=== PATIENT | female | born 1955 | race African-American/Black ===

== ENCOUNTER 2023-04-05 09:34 | Emergency (ER) | payer OTHER ==
--- OUTSIDE RECORDS SUMMARY | 2023-04-05 09:38 | XMS REPORT | Continuity of Care Document ---
:1955 Author Organization [facility] t Address [address] [place] [address]. [address] [place] [address] Care Team Providers Name Role Phone Asked, No Pcp Primary Care Physician Unavailable Neli Karimi Attending Clinician Unavailable Bear NUNEZ, Hellen Attending Clinician David Delacruz MD Attending Clinician Allyssa Naidu MD Attending Clinician Payers Payer Name Policy Type Policy Number Effective Date Expiration Date S ource Problems Condition Condition Condition Status Onset Resolution Last Treating Co mments Source Name Details Category Date Date Treatment Clinician Date Primary Primary Disease Active [facility] hypert[facility] hypertensi 03-05 [facility]: [facility]osp[facility] 00 l Allergies, Adverse Reactions, Alerts This patient has no known allergies or adverse reactions. Social History Social Habit Start Date Stop Date Quantity Comments Source [facility] Tobacco use and 2023-03-05 2023-03-05 Smokeless [facility] 00:00:00 00:00:00 tobacco non-user Hospital History of Social 2023-03-05 2023-03-[address] function 00:00:00 00:00:00 Hospital Sex Assigned At [birth year] [facility] Smoking Status Start Date Stop Date Source Never smoked tobacco [facility] Medications Ordered Filled Start Stop Current Ordering Indication Dosage Frequency Signature Comments Components Source Medication Medication Date Date Medication? Clinician (SIG) Name Name acetaminoph Yes 500mg Q6H Take 1 Met hodi en 4-[address] (TYLENOL) 14:16: (500 mg Hospi ta 500 MG 19 total) by l tablet mouth every 6 (six) hours as needed for mild pain. Lactobac Yes Take by Method i no.41/Bifid 4-[address] obact no.7 14:16: Hospita (PROBIOTIC- 19 l 10 ORAL) potassium 0 Yes 10meq QD Take 1 Metho di chloride 3-[address] (MICRO-K) 00:00: (10 mEq Hospi ta 10 MEQ CR 00 total) by l capsule mouth daily. metoprolol 0 Yes 100mg Q.5D Take 1 Meth siva succinate 3-[address] XL 00:00: (100 mg Hospita (TOPROL-XL) 00 total) by l 100 mg 24 mouth 2 hr tablet (two) times a day. atorvastati 0 Yes 20mg QD Take 1 Meth siva n (LIPITOR) 3-31 tablet (20 st 20 mg 00:00: mg total) Hospita tablet 00 by mouth l daily. losartan 0 Yes 100mg QD Take 1 Method i (COZAAR) 3-[address] 100 MG 00:00: (100 mg Hospita tablet 00 total) by l mouth daily. torsemide 0 Yes 20mg QD Take 1 Method i (DEMADEX) 3-31 tablet (20 st 20 MG 00:00: mg total) Hospita tablet 00 by mouth l daily. clonIDINE 0 Yes .1mg Q.5D Take 1 Method i (CATAPRES) 3-[address] 0.1 MG 00:00: (0.1 mg [facility]ospita tablet 00 total) by l mouth 2 (two) times a day. Vital Signs Vital Name Observation Time Observation Value Comments Source Systolic blood 2023-03-05 19:12:00 220 mm[Hg] [facility] pressure Diastolic blood 2023-03-05 19:12:00 90 mm[Hg] [facility] pressure Heart rate 2023-03-05 19:12:00 67 /min [facility] Body temperature 2023-03-05 19:12:00 36.06 Bonnie [facility] Respiratory rate 2023-03-05 19:12:00 20 /min [facility] Body height 2023-03-05 19:12:00 167.6 cm [facility] Body weight 2023-03-05 19:12:00 90.436 kg [facility] BMI 2023-03-05 19:12:00 32.18 kg/m2 [facility] Procedures Procedure Date / Time Performed Performing Clinician Sour e MAMMO EXTERNAL STUDY 2023-01-22 15:37:00 SifuentesHellen [facility] US BREAST EXTERNAL 2023-01-22 15:37:[address] [facility] STUDY Plan of Care Planned Activity Planned Date Details Comments Source Future Scheduled 2023-04-04 Hepatitis C screening [facility] Test 10:16:55 (procedure) [code = 901661436] Future Scheduled 2023-04-04 Screening for [facility] Test 10:16:55 malignant neoplasm of cervix (procedure) [code = 747293426] Future Scheduled 2023-04-04 COLONOSCOPY SCREENING [facility] Test 10:16:55 [code = COLONOSCOPY SCREENING] Future Scheduled 2023-04-04 SHINGLES VACCINES (1 Met [facility] Test 10:16:55 of 2) [code = SHINGLES VACCINES (1 of 2)] Future Scheduled 2023-04-04 COVID-19 VACCINE (3 - [facility] Test 10:16:55 Booster for Pfizer series) [code = COVID-19 VACCINE (3 - Booster for Pfizer series)] Future Scheduled 2023-04-04 65+ PNEUMOCOCCAL [facility] Test 10:16:55 VACCINE (1 - PCV) [code = 65+ PNEUMOCOCCAL VACCINE (1 - PCV)] Future Scheduled 2023-04-04 INFLUENZA VACCINE Method [facility] Test 10:16:55 [code = INFLUENZA VACCINE] Future Scheduled 2023-04-04 BREAST CANCER [facility] Test 10:16:55 SCREENING [code = BREAST CANCER SCREENING] Encounters Start End Encounter Admission Attending Care Care Encounter Source Date/Time Date/Time Type Type Clinicians Facility Department ID 2023-03-27 2023-03-27 Candelario Karimi [id number] Methodi 00:00:00 00:00:[id number] 3.430.2.7 Hospit a .3.963531 l .8 2023-03-20 2023-03-20 Telephone Sachi, 1.2.840.1 [id number] Methodi 00:00:00 00:00:[address] 3.430.2.7 Hospit a .3.178068 l .8 2023-03-18 2023-03-18 [facility], 1.2.840.1 [id number] Methodi 09:20:48 23:59:00 Encounter Dharamvir [id number] 3.430.2.7 Hospit a .3.140530 l .8 2023-03-18 2023-03-18 [facility], 1.2.840.1 [id number] Methodi 09:20:31 23:59:00 Encounter Dharamvir [address]1693.1.[address] 3.430.2.7 Hospit a .3.520839 l .8 2023-03-18 2023-03-18 Telephone Sifuentes, 1.2.840.1 [id number] Methodi 00:00:00 00:00:[address] 3.430.2.7 Hospit a .3.801069 l .8 2023-03-18 2023-03-18 [facility] [id number] [place] 00:00:00 00:00:[address] 2023-03-18 2023-03-18 [facility] [id number] [place] 00:00:00 00:00:[address] 2023-03-12 2023-03-12 [facility], 1.2.840.1 [id number] [facility] 00:00:00 00:00:00 Orders David Flanagan 43482.1.1 ity of 3.412.2.7 [place] .3.407122 MD Pinedo8 [facility] 2023-03-10 2023-03-10 Telephone Sifuentes, 1.2.840.1 [id number] Methodi 00:00:00 00:00:[address] 3.430.2.7 Hospit a .3.531025 l .8 2023-03-06 2023-03-06 Telephone Sifuentes, 1.2.840.1 [id number] Methodi 00:00:00 00:00:[address] 3.430.2.7 Hospit a .3.697001 l .8 2023-03-05 2023-03-05 Office Bear, 1.2.840.1 [id number] Methodi 14:00:00 15:29:44 Visit Dharamvir [address]49.1.[address] 3.430.2.7 Hospit a .3.846366 l .8 2023-03-05 2023-03-05 Travel 1.2.840.1 1.2.259.373 [id number] Methodi 00:00:00 00:00:[address] 3.430.2.7 0.2.7.3.698 spita .3.188418 084.8 l .8 2023-03-05 2023-03-05 [facility] [id number] [place] 00:00:00 00:00:[address] 2023-02-14 2023-02-14 Telephone Elysia, 1.2.840.1 [id number] Methodi 00:00:00 00:00:00 [address] 3.430.2.7 Hospit a .3.989635 l .8 Results This patient has no known results.
--- OUTSIDE RECORDS SUMMARY | 2023-04-05 09:38 | XMS REPORT | Clinical Summary ---
:1955 Author Organization [facility] Address [address] [place] [id number] Care Team Providers Name Role Phone David Delacruz MD Unavailable Allergies Not on File Medications Not on file Active Problems Not on file Encounters Date Type Specialty Care Team Description 03/12/2023 Community Orders David Delacruz MD Ot her inconclusive finding on diagnostic i maging of breast (Primary Dx) after 04/05/2022 Social History Tobacco Use Types Packs/Day Years Used Date Smoking Tobacco: Never Assessed Sex Assigned at Date Recorded Not on file Job Start Date Occupation Industry Not on file Not on file Not on file Last Filed Vital Signs Not on file Plan of Treatment Not on file Results Not on fileafter 04/05/2022 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
[2023-04-05] MEDS ORDERED: NA CHLORIDE 0.9% 1,000 ML ONE (10:01)
[2023-04-05 10:32] LABS: Absolute Lymphocytes (CBC) 1.4 K/uL (0.7-4.9); Hematocrit 37.6 % (36.0-45.0); Lymphocytes % 25.6 % (15.3-44.8); MPV 10.1 fL (7.6-11.3); RBC Red Blood Cell Count 4.76 M/uL (3.86-4.86)
[2023-04-05 10:49] LABS: Bilirubin Total 0.6 mg/dL (0.2-1.0); Potassium 3.2 mEq/L (3.5-5.1)
[2023-04-05 11:55] LABS: Specific Gravity 1.013 (1.005-1.030); Urine Bilirubin NEGATIVE (Negative); Urine Blood Negative (Negative); Urine Clarity Clear (Clear); Urine Color Light-Yellow (Yellow); Urine Glucose NEGATIVE (Negative); Urine Protein NEGATIVE (Negative); Urine Urobilinogen Normal (Normal)
--- NOTE | 2023-04-05 12:38 | RAD REPORT ---
EXAM DESCRIPTION: US - Abdomen Exam Limited - 04/05/2023 12:28 pm CLINICAL HISTORY: ABD PAIN COMPARISON: Abdomen W Contrast dated 06/12/2021 FINDINGS: The gallbladder demonstrates no gallstones. No pericholecystic fluid or gallbladder wall t hickening. The common bile duct is normal measuring 2 mm. The liver demonstrates no findings of intrahepatic biliary dilatation. IMPRESSION: Unremarkable examination.
--- NOTE | 2023-04-05 13:07 | EDPHYS ---
Physician Documentation [facility] Name: Siri Colvin Age: 67 yrs Sex: Female : 1955 Arrival Date: 04/05/2023 Time: 09:34 Bed 8 Private MD: ED Physician Blair Cade HPI: 04/05 09:55 This 67 yrs old Black Female presents to ER via Ambulatory with complaints of Abd Pain cp > 50 y/o. 09:55 The patient presents with abdominal pain in the lower abdomen. Onset: The cp symptoms/episode began/occurred 1 week(s) ago. 09:55 The symptoms do not radiate. cp 09:55 Associated signs and symptoms: Pertinent negatives: blood in stools, diarrhea, dysuria, cp fever, headache, vomiting. The symptoms are described as waxing/waning. Severity of pain: in the emergency department the pain is unchanged despite home interventions. Patient reports history of "breast cysts" and being told by DR Delacruz to f/u at [facility] and/or [facility]. Historical: - Allergies: 09:44 No Known Allergies; aa5 - PMHx: 09:44 Hypertension; Pre-diabetes; aa5 - PSHx: 09:44 ovarian cyst removed; hysterectomy; aa5 - Immunization history:: Adult Immunizations unknown. - Social history:: Smoking status: Patient denies any tobacco usage or history of. ROS: 10:00 Constitutional: Negative for body aches, chills, fever, poor PO intake. cp 10:00 Eyes: Negative for injury, pain, redness, and discharge. cp 10:00 ENT: Negative for drainage from ear(s), ear pain, sore throat, difficulty swallowing, cp difficulty handling secretions. 10:00 Cardiovascular: Negative for chest pain, edema, palpitations. 10:00 Respiratory: Negative for cough, shortness of breath, wheezing. 10:00 Abdomen/GI: Positive for abdominal pain, Negative for vomiting, diarrhea, constipation, black/tarry stool, rectal bleeding. 10:00 Back: Negative for radiated pain. 10:00 Neuro: Negative for altered mental status, dizziness, headache, weakness. 10:00 All other systems are negative. Exam: 10:05 Constitutional: The patient appears in no acute distress, alert, awake, cp non-diaphoretic, non-toxic, well developed, well nourished. 10:05 Head/Face: Normocephalic, atraumatic. cp 10:05 Eyes: Periorbital structures: appear normal, Conjunctiva: normal, no exudate, no injection, Sclera: no appreciated abnormality, Lids and lashes: appear normal, bilaterally. 10:05 ENT: External ear(s): are unremarkable, Nose: is normal, Mouth: Lips: moist, Oral mucosa: pink and intact, moist, Posterior pharynx: is normal, airway is patent, no erythema, no exudate. 10:05 Neck: ROM/movement: is normal, is supple, without pain, no range of motions limitations. 10:05 Chest/axilla: Inspection: normal. 10:05 Cardiovascular: Rate: normal, Rhythm: regular, Edema: is not appreciated, JVD: is not appreciated. 10:05 Respiratory: the patient does not display signs of respiratory distress, Respirations: normal, no use of accessory muscles, no retractions, labored breathing, is not present, Breath sounds: are clear throughout, no decreased breath sounds, no stridor, no wheezing. 10:05 Abdomen/GI: Inspection: abdomen appears normal, Bowel sounds: active, all quadrants, Palpation: soft, in all quadrants, mild abdominal tenderness, in the right lower quadrant and left lower quadrant, rebound tenderness, is not appreciated. 10:05 Back: CVA tenderness, is absent. 10:05 Neuro: Orientation: to person, place \\T\\ time. Mentation: is normal, Motor: moves all fours, strength is normal. Vital Signs: 09:43 BP 209 / 106; Pulse 60; Resp 16 S; Temp 97.9(TE); Pulse Ox 100% on R/A; Weight 86.18 kg aa5 (R); Height 5 ft. 6 in. (R); 10:09 BP 172 / 87; Pulse 58; Resp 18; Pulse Ox 98% on R/A; ld1 12:44 BP 182 / 81; Pulse 60; Resp 18; Pulse Ox 99% on R/A; ld1 09:43 Body Mass Index 30.67 (86.18 kg, 167.64 cm) aa5 MDM: 09:43 Patient medically screened. cp 11:00 Differential diagnosis: appendicitis, cholecystitis, Cholelithiasis, diverticulitis, cp non-specific abd pain, pancreatitis, Peritonitis, Pyelonephritis, Ureterolithiasis, urinary tract infection. 11:36 ED course: Patient declines to have CT abdomen/pelvis at this time to evaluate cp abdominal pain. 13:05 Data reviewed: vital signs, nurses notes, lab test result(s), radiologic studies, cp ultrasound. 13:05 I considered the following discharge prescriptions or medication management in the emergency department Medications were administered in the Emergency Department. See MAR. Test considered but Not performed: CT: abdomen/pelvis. Care significantly affected by the following chronic conditions: Diabetes, Hypertension. Counseling: I had a detailed discussion with the patient and/or guardian regarding: the historical points, exam findings, and any diagnostic results supporting the discharge/admit diagnosis, the presence of at least one elevated blood pressure reading (>120/80) during this emergency department visit, lab results, radiology results, the need for outpatient follow up, a general surgeon, to return to the emergency department if symptoms worsen or persist or if there are any questions or concerns that arise at home. 04/05 09:49 Order name: CBC with Diff; Complete Time: 11:24 04/05 11:24 Interpretation: Normal except: MCV 79.0; MCH 25.1; MCHC 31.8; RDW 16.5; MN% 13.0. 04/05 09:49 Order name: CMP; Complete Time: 11:24 04/05 11:24 Interpretation: Normal except: K 3.2; GFR 71; GLOB 4.0; A/G 1.0. 04/05 09:49 Order name: Lipase; Complete Time: 11:24 04/05 09:49 Order name: Urinalysis w/ reflexes; Complete Time: 12:21 04/05 12:21 Interpretation: Reviewed. 04/05 11:37 Order name: US Abdomen Limited: gallbladder; Complete Time: 12:59 04/05 12:59 Interpretation: Report reviewed. 04/05 09:49 Order name: IV Saline Lock; Complete Time: 11:58 04/05 09:49 Order name: Labs collected and sent; Complete Time: 10:25 cp Administered Medications: 10:18 Not Given (Physician Discretion): NS 0.9% IV 1000 ml IV at 1 bolus Per protocol; 1000 cp mL bolus 11:58 Not Given (Patient Refused): morphine IVP or IV 4 mg IVP once over 4 mins ld1 11:58 Not Given (Patient Refused): Ondansetron IVP 4 mg IVP once; over 2 minutes ld1 11:58 Not Given (Patient Refused): NS 0.9% IV 500 ml IV at bolus continuous ld1 11:58 Not Given (Patient Refused): NS 0.9% IV 500 ml IV at 100 ml/hr continuous ld1 Disposition Summary: 04/05/23 13:07 Discharge Ordered Location: Home cp Problem: new cp Symptoms: have improved cp Condition: Stable cp Diagnosis - Lower abdominal pain, unspecified cp - Hypertensive heart disease without heart failure cp - History of Breast Cyst cp Followup: cp - With: David Delacruz MD - When: 2 - 3 days - Reason: Recheck today's complaints Followup: cp - With: Florentin Jones MD - When: 2 - 3 days - Reason: breast cyst Discharge Instructions: - Discharge Summary Sheet cp - Abdominal Pain, Adult cp - Hypertension, Adult cp - Aspirin and Your Heart cp - Form - Blood Pressure Record Sheet cp - How to Take Your Blood Pressure cp Forms: - Medication Reconciliation Form cp - Thank You Letter cp - Antibiotic Education cp - Prescription Opioid Use cp Signatures: Dispatcher [employer] Aldana RN RN aa5 Shaquille Rascon PA PA cp Olive Emerson RN ld1 Corrections: (The following items were deleted from the chart) 11:49 10:19 Abdomen Pelvis W Con+CT.RAD.BRZ ordered. EDMS EDMS
--- NOTE | 2023-04-05 13:07 | ER ---
Nurse's Notes [facility] Name: Siri Colvin Age: 67 yrs Sex: Female : 1955 Arrival Date: 04/05/2023 Time: 09:34 Bed 8 Private MD: Diagnosis: Lower abdominal pain, unspecified;Hypertensive heart disease without heart failure;History of Breast Cyst Presentation: 04/05 09:43 Chief complaint: Patient states: lower abd pain for approximately 1 week and gradually aa5 getting worse. Pt denies nausea/vomiting/diarrhea. Onset of symptoms was March 2023. 09:43 Acuity: PHILIP 3 aa5 09:43 Method Of Arrival: Ambulatory aa5 09:43 Coronavirus screen: At this time, the client does not indicate any symptoms associated aa5 with coronavirus-19. Ebola Screen: Patient denies travel to an Ebola-affected area in the 21 days before illness onset. Initial Sepsis Screen: Does the patient meet any 2 criteria? No. Patient's initial sepsis screen is negative. Does the patient have a suspected source of infection? No. Patient's initial sepsis screen is negative. Risk Assessment: Do you want to hurt yourself or someone else? Patient reports no desire to harm self or others. Historical: - Allergies: 09:44 No Known Allergies; aa5 - PMHx: 09:44 Hypertension; Pre-diabetes; aa5 - PSHx: 09:44 ovarian cyst removed; hysterectomy; aa5 - Immunization history:: Adult Immunizations unknown. - Social history:: Smoking status: Patient denies any tobacco usage or history of. Screenin:10 [facility] ED Fall Risk Assessment (Adult) History of falling in the last 3 months, ld1 including since admission No falls in past 3 months (0 pts). Abuse screen: Denies threats or abuse. Denies injuries from another. Nutritional screening: No deficits noted. Tuberculosis screening: No symptoms or risk factors identified. Assessment: 10:10 General: Appears in no apparent distress. comfortable, Behavior is calm, cooperative, ld1 appropriate for age. Pain: Complains of pain in right lower quadrant and left lower quadrant Pain does not radiate. Pain currently is 8 out of 10 on a pain scale. Quality of pain is described as throbbing. Neuro: Level of Consciousness is awake, alert, obeys commands, Oriented to person, place, time, situation. Cardiovascular: Capillary refill < 3 seconds Patient's skin is warm and dry. Respiratory: Airway is patent Respiratory effort is even, unlabored. GI: Abdomen is round non-distended, Bowel sounds present X 4 quads. Abd is soft Abdomen is tender to palpation in right lower quadrant and left lower quadrant Reports lower abdominal pain. : No signs and/or symptoms were reported regarding the genitourinary system. EENT: No signs and/or symptoms were reported regarding the EENT system. Derm: No signs and/or symptoms reported regarding the dermatologic system. Musculoskeletal: No signs and/or symptoms reported regarding the musculoskeletal system. 12:44 Reassessment: Patient appears in no apparent distress at this time. No changes from ld1 previously documented assessment. Patient and/or family updated on plan of care and expected duration. Pain level reassessed. Vital Signs: 09:43 BP 209 / 106; Pulse 60; Resp 16 S; Temp 97.9(TE); Pulse Ox 100% on R/A; Weight 86.18 kg aa5 (R); Height 5 ft. 6 in. (R); 10:09 BP 172 / 87; Pulse 58; Resp 18; Pulse Ox 98% on R/A; ld1 12:44 BP 182 / 81; Pulse 60; Resp 18; Pulse Ox 99% on R/A; ld1 09:43 Body Mass Index 30.67 (86.18 kg, 167.64 cm) aa5 ED Course: 09:43 Patient arrived in ED. aa5 09:43 Shaquille Rascon PA is PHCP. cp 09:43 Blair Cade MD is Attending Physician. cp 09:43 Arm band placed on Patient placed in an exam room, on a stretcher. aa5 09:44 Triage completed. aa5 09:53 Olive Emerson, BISI is Primary Nurse. ld1 10:10 Patient has correct armband on for positive identification. Placed in gown. Bed in low ld1 position. Call light in reach. Side rails up X2. hall monitor on. Pulse ox on. NIBP on. Door closed. Noise minimized. Warm blanket given. 10:10 No provider procedures requiring assistance completed. ld1 10:32 Missed attempt(s): 22 gauge in left antecubital area. blood collected, Catheter would kr3 not advance . 11:00 Radiology exam delayed due to IV insertion attempt and/or patient not having jg10 appropriate IV at this time. 11:24 Inserted saline lock: 22 gauge in right upper arm, using aseptic technique. aa5 11:46 Note: CT cancelled per Shaquille Rascon due to pt refusal.. jg10 12:30 US Abdomen Limited: gallbladder In Process Unspecified. EDMS 13:05 David Delacruz MD is Referral Physician. cp 13:06 Florentin Jones MD is Referral Physician. cp 13:15 IV discontinued, intact, bleeding controlled, No redness/swelling at site. Pressure kr3 dressing applied. Administered Medications: 10:18 Not Given (Physician Discretion): NS 0.9% IV 1000 ml IV at 1 bolus Per protocol; 1000 cp mL bolus 11:58 Not Given (Patient Refused): morphine IVP or IV 4 mg IVP once over 4 mins ld1 11:58 Not Given (Patient Refused): Ondansetron IVP 4 mg IVP once; over 2 minutes ld1 11:58 Not Given (Patient Refused): NS 0.9% IV 500 ml IV at bolus continuous ld1 11:58 Not Given (Patient Refused): NS 0.9% IV 500 ml IV at 100 ml/hr continuous ld1 Medication: 13:15 VIS not applicable for this client. kr3 Outcome: 13:07 Discharge ordered by . cp 13:15 Discharged to home ambulatory. kr3 13:15 Condition: stable 13:15 Discharge instructions given to patient, Instructed on discharge instructions, follow up and referral plans. Demonstrated understanding of instructions, follow-up care. 13:16 Patient left the ED. kr3 Signatures: Dispatcher [employer] [place] Jovel, RN RN aa5 Shaquille Rascon PA PA cp Sims, Lauren, RN RN ld1 Lulu Jacobs RN RN kr3 Lyndsay Brown jg10
[2023-04-05 13:25] VITALS: TEMP 97.9
[2023-04-05 13:42] VITALS: BP 182/81; O2SAT 99
== END 2023-04-05 13:16 | disposition home or self-care (01) ==
LOC: ER 09:34
DX: R10.30 Lower abdominal pain, unspecified (principal); I11.9 Hypertensive heart disease without heart failure; N60.09 Solitary cyst of unspecified breast; I10 Essential (primary) hypertension; R73.03 Prediabetes
CPT/HCPCS: 85025; 36415; 81003; 83690; 80053; 76705; 99284; J7030